=== PATIENT | male | born 1955 | race Caucasian/White ===

== ENCOUNTER 2018-09-23 16:24 | Inpatient (IN) | payer BC, OTHER ==
[~2018-09-23 16:24] MED LIST: ISOVUE-370 76%-LOCM 1 ML ONE
[2018-09-23 17:10] LABS: #Eosinphils 0.1 thou/uL (0.0-0.7); #Monocytes 1.6 thou/uL (0.11-0.59); %Basophils 0.2 % (0.0-1.0); %Eosinophils 0.7 % (0.0-10.0); %Lymphocytes 7.9 % (21.0-51.0); %Monocytes 12.5 % (0.0-10.0); %Neutrophils 78.6 % (42.0-75.0); Hemoglobin 13.6 g/dL (14.0-18.0); Mean Corpuscular Hemoglobin 26.9 pg (27.0-31.0); Mean Corpuscular Volume 83.8 fL (78.0-98.0); Mean Platelet Volume 7.6 fL (7.4-10.4); Platelet Count 263 thou/uL (130-400); RBC Distribution Width 13.4 % (11.5-14.5); Red Blood Cell (RBC) Count 5.07 mill/uL (4.70-6.10); White Blood Cell (WBC) Count 12.7 thou/uL (4.8-10.8)
[2018-09-23 17:29] LABS: Actual Bicarbonate (HCO3a) 25.4 mEq/L (22-28); Analyzer IN Cardio ER; Base Excess (BEa) 1.5 mEq/L (-2.0 to +3.0); CO2 Tension 37.8 mmHg (35.0-45.0); Calcium, Ionized 1.13 mmol/L (1.12-1.30); Carboxyhemoglobin (COHb) 0.5 gm% (0.0-3.0); Hemoglobin (Hb) 13.6 g/dL (14.0-18.0); O2 Tension (PaO2) 73.2 mmHg (> 80.0); Potassium - ABG Lab 3.55 mmol/L (3.70-5.30); pH, Arterial 7.45 (7.35-7.45)
[2018-09-23 17:30] LABS: Puncture Site RRA
[2018-09-23 17:39] LABS: ALT (SGPT) 47 U/L (8-55); AST (SGOT) 35 U/L (5-34); Albumin 3.2 g/dL (3.4-4.8); Alkaline Phosphatase 147 U/L (40-150); Anion Gap 17 mmol/L (10-20); BUN (Urea Nitrogen) 27 mg/dL (8.4-25.7); Bilirubin, Total 0.3 mg/dL (0.2-1.2); CK (CPK) 56 U/L (30-200); Calc. Creatinine Clearance 0 mL/min (70-130); Calcium 9.2 mg/dL (7.8-10.44); Carbon Dioxide 25 mmol/L (23-31); Chloride 97 mmol/L (98-107); Estimated GFR-MDRD 68; Globulin 3.4 g/dL (2.4-3.5); Glucose 194 mg/dL (80-115); Potassium 3.7 mmol/L (3.5-5.1); Protein, Total 6.6 g/dL (5.8-8.1); Sodium 135 mmol/L (136-145)
--- NOTE | 2018-09-23 17:59 | RAD ---
FRONTAL RADIOGRAPH CHEST PORTABLE UPRIGHT: 09/23/18 COMPARISON: None. HISTORY: Dyspnea, tachycardia, hypoxia. FINDINGS: There is pulmonary vascular prominence. There is interstitial opacity in the perihilar regions in bot h lung bases. There may be a reticulonodular configuration to these opacities. No large volume pleur al effusion. No pneumothorax or focal consolidation. Heart and mediastinal contours not well assesse d on portable imaging. Hilar prominence bilaterally could reflect vascular structures or adenopathy. IMPRESSION: Pulmonary vascular prominence with perihilar and bibasilar interstitial prominence. Findings suggests possibility of interstitial pulmonary edema. Reticulnodular density could also be related to infect ion or malignancy. Recommend followup imaging following treatment to document resolution. CT may be beneficial at this time. POS: [facility]
[2018-09-23 18:01] LABS: CKMB 0.6 ng/mL (0-6.6)
[2018-09-23] MEDS ORDERED: methylPREDNISolone Sod Succ/PF 125 MG/2 ML VIAL ONE (18:12)
[2018-09-23] MEDS ORDERED: Famotidine 20 MG TAB ONE (18:12)
[2018-09-23] MEDS ORDERED: diphenhydrAMINE 50 MG/ML VIAL ONE (18:13)
--- NOTE | 2018-09-23 18:53 | RAD ---
FRONTAL RADIOGRAPH PELVIS 09/23/18 COMPARISON: None. HISTORY: Lower abdominal pain in the groin, weakness. FINDINGS: There is no widening of the sacroiliac joints at the pubic symphysis. The pelvic ring is intact. No d isplaced fracture or evidence of dislocation. IMPRESSION: No acute findings. POS: [facility]
--- NOTE | 2018-09-23 18:58 | RAD ---
LUMBAR SPINE THREE VIEWS: 09/23/18 COMPARISON: None. HISTORY: Lower abdominal pain, weakness. FINDINGS: Five lumbar type vertebral bodies are present with intact pedicles on frontal imaging. Lateral imagin g demonstrates normal vertebral body height and alignment. There is facet hypertrophy at L4-5 and L5- S1. There is mild disc space narrowing and anterior osteophyte formation at L2-3 and L3-4. IMPRESSION: Degenerative change. No acute fracture or dislocation. POS: [facility]
[2018-09-23 19:23] LABS: Bilirubin Negative (Negative); Blood, Urine Large (Negative); Clarity CLOUDY (Clear); Glucose, Urine (Dipstick) Negative (Negative); Leukocyte Large (Negative); Nitrite Positive (Negative); Protein, Urine (Dipstick) 30 mg/dL (Neg-Trace); Specific Gravity, Urine 1.017 (1.002-1.036); Urobilinogen 0.2 mg/dL (0.2-1.0); pH, Urine 5.5 (5.0-9.0)
[2018-09-23 19:28] LABS: Bacteria/HPF 4+ HPF (None Seen); Hyaline Casts/LPF 7-10 HYALINE CAST LPF (0-3 Hyaline); Pathc Cast-AUWi Flag 0.72 (0-2.49); RBC/HPF GREATER THAN 50-TNTC HPF (0-3); Squamous Epithelial None Seen HPF (0-3)
[2018-09-23 22:32] LABS: CKMB 0.8 ng/mL (0-6.6)
--- NOTE | 2018-09-23 23:51 | CT ---
CT ANGIOGRAM OF THE CHEST 09/23/18 COMPARISON: None. HISTORY: Shortness of breath, history of stage IV prostate cancer. TECHNIQUE: Axial CT imaging at 2.5 mm intervals from the thoracic inlet through the upper abdomen with IV contra st. Coronal and sagittal 3D reformatted imaging obtained. FINDINGS: Respiratory motion artifact limits detailed assessment of the lung parenchyma. There is diffuse nonsp ecific increased linear interstitial density seen throughout both lungs. Some of these areas of diffu se nonspecific interstitial prominence demonstrate a somewhat reticulonodular configuration. No pleur al, pericardial, or mediastinal fluid is evident. Ill-defined ground glass nodule noted in the anterior aspect of the right middle lobe measuring 1.1 c m on axial image 59. There is no axillary lymphadenopathy. There is extensive bilateral hilar adenopathy and extensive mediastinal adenopathy. Numerous enlarged right paratracheal lymph nodes are noted, measuring up to 2.4 cm short axis dimension. Enlarged node s in the AP window measure up to 1.6 cm. Subcarinal adenopathy measures up to 2.4 cm. numerous bilate ral hilar lymph nodes present measuring up to 2.1 cm on the right and 1.8 cm on the left. Limited assessment of the upper abdomen demonstrates enlargement of an incompletely imaged left kidne y. There is lymphadenopathy seen in the upper abdomen, which includes enlarged lymph nodes in the lef t para-aortic region measuring up to 2.2 cm in short axis dimension and enlarged nodes in the region of the whitney hepatis, measuring up to approximately 1.4 cm short axis dimension. Incompletely assesse d retrocrural lymphadenopathy is suspected measuring 1.6 cm short axis dimension on the left and 1.1 cm short axis dimension on the right. No discrete filling defect is seen involving the pulmonary arterial vasculature to suggest the presen ce of acute pulmonary arterial embolism. Review of the osseous structures demonstrates a sclerotic lesion within the right 4th rib on image 3 8, the right 5th rib on image 55. The right 6th rib on image 63, the right 7th rib on image 67. The right 8th rib on image 76 and possibly the right 9th rib on image 102. There are sclerotic lesions a ssociated with left ribs as well including the 3rd rib posteriorly on image 16, 4th rib posteriorly o n image 24, 5th rib laterally on image 53 with a probably associated age indeterminate pathologic fra cture. The left 7th rib laterally on image 70 and the left 8th rib laterally on image 73. Questionable subtle sclerotic vertebral body lesions are noted at the T12, T8, and T7 levels. IMPRESSION: Extensive lymphadenopathy of the chest and abdomen as well as numerous sclerotic osseous lesions, franklyn dence of widespread metastatic disease. No evidence for pulmonary arterial embolism. Extensive abnorm al reticulonodular density throughout both lungs which may signify diffuse atypical infections proces s or lymphangitic spread of cancer. Results called to Dr. Payton at 8:10 p.m., 09/23/18. Code CR POS: [facility]
[2018-09-24 00:43] VITALS: BMI 29.8
[2018-09-24 02:21] LABS: CKMB 0.8 ng/mL (0-6.6)
[2018-09-24] MEDS ORDERED: Insulin Regular 300 UNITS/3 ML VIAL SC PRN ×2 (03:10)
[2018-09-24] MEDS ORDERED: Dextrose 50% Abboject 50 ML SYRINGE SLOW IVP PRN (03:10)
[2018-09-24] MEDS ORDERED: Dextrose 5% in Water 1,000 ML IV PRN (03:10)
[2018-09-24] MEDS ORDERED: traMADol HCl 50 MG TAB PO PRN (03:11)
[2018-09-24] MEDS ORDERED: Nitroglycerin 0.4 MG TAB (25 Tab Bottle) PO PRN (03:12)
[2018-09-24] MEDS ORDERED: Calcium Carbonate 500 MG ChewTAB PO PRN (03:12)
[2018-09-24] MEDS ORDERED: Acetaminophen 325 MG TAB PO PRN (03:12)
[2018-09-24] MEDS ORDERED: Senokot S 8.6-50 MG TAB PO PRN (03:12)
[2018-09-24] MEDS ORDERED: hydrALAZINE 20 MG/ML VIAL SLOW IVP PRN (03:20)
--- NOTE | 2018-09-24 03:57 | HP ---
CHIEF COMPLAINT: Shortness of breath. PRIMARY CARE PHYSICIAN: Dr. Maharaj. HISTORY OF PRESENT ILLNESS: The patient is a 63-year-old white male with metastatic prostate cancer, presented to the emergency room with shortness of breath. Over the last 3 weeks or so, the patient developed gradual worsening shortness of breath to the extent that he is short of breath at rest. He also gets dyspneic while talking. He denies significant orthopnea or paroxysmal nocturnal dyspnea. No significant leg swelling reported. He had minimal cough that was dry. He has also lost his appetite. He has nausea intermittently without any vomiting. He had lower abdominal pain yesterday that improved after a bowel movement. He denies recent immobilization, travel. He checked his oxygen at home, which was 85% on room air. He was able to obtain oxygen from his sister, which helped with his symptoms. In the emergency room, initial vital signs showed temperature 98.4, respiration of 20, with mild distress, pulse rate of 112, blood pressure of 116/71 with O2 saturation of 94% on 3 L nasal cannula. He received Levaquin and IV fluids in the emergency room. He also received antihistamine and steroid for iodine allergy. PAST MEDICAL HISTORY: 1. Metastatic prostate cancer, currently on homeopathic treatment. 2. Hypertension. 3. Diabetes mellitus type 2. 4. Hyperlipidemia. 5. Chronic urinary retention requiring straight catheterization. PAST SURGICAL HISTORY: 1. Right shoulder replacement. 2. Inguinal hernia repair. ALLERGIES: THE PATIENT IS ALLERGIC TO IODINE. CURRENT HOME MEDICATIONS: 1. Amlodipine 2.5 mg daily. 2. Glipizide ER 10 mg daily. 3. Benicar 40 mg daily. 4. Zofran as needed. 5. Tramadol as needed. SOCIAL HISTORY: The patient is a long-term smoker. Denies alcohol or drug use. FAMILY HISTORY: Positive for father with heart disease. Father underwent CABG as well as valve replacement. Younger brother requiring valve replacement. REVIEW OF SYSTEMS: All other review of systems was reviewed and was found negative. PHYSICAL EXAMINATION: VITAL SIGNS: As discussed above. GENERAL: A 63-year-old male, in minimal respiratory distress while resting. HEENT: Head, atraumatic and normocephalic. Sclerae anicteric. Moist mucous membranes. No oral lesions. NECK: Supple. No JVD appreciated. No carotid bruit. LUNGS: Symmetrical. There were minimal rhonchi without any wheezing. There were few inspiratory and expiratory rales, especially at bases. HEART: S1 and S2 present. Regular rate and rhythm. No murmurs, rubs, or gallops appreciated. ABDOMEN: Soft. Bowel sounds present. EXTREMITIES: No edema or calf tenderness. NEUROLOGIC: Grossly nonfocal. Moves all 4 extremities. PSYCHIATRY: Alert, awake, and oriented x3. SKIN: Warm and dry. LYMPH NODES: No palpable lymph nodes in the neck. LABORATORY FINDINGS: Chest x-ray by my review showed increased bronchopulmonary markings. CT angiogram of the chest was negative for pulmonary embolism. It showed extensive lymphadenopathy in the chest and abdomen with numerous sclerotic osseous lesion. Influenza testing was negative. EKG by my review showed sinus tachycardia. WBC 12.7 with hemoglobin of 13.6, platelet 263. Urinalysis showed greater than 50 wbc's, greater than 50 rbc's with 4+ bacteria. Troponin 0.157 with normal CK-MB. Lactic acid was normal. BNP 37. IMPRESSION: 1. Acute hypoxic respiratory failure secondary to atypical pneumonia. 2. Stage IV prostate cancer, currently on homeopathic regimen. The patient has declined chemotherapy and radiation in the past. He received Lupron approximately 2-1/2 years ago. 3. Elevated troponin, probably secondary to demand ischemia. 4. Chronic kidney disease stage 2. 5. Mild hyponatremia. 6. Catheter-associated urinary tract infection. 7. Nausea with poor oral intake. 8. Hypertension. 9. Diabetes mellitus type 2. 10. Hyperlipidemia. PLAN: The patient will be monitored on the telemetry unit. Echocardiogram will be obtained. Empiric antibiotics for atypical pneumonia and UTI will be started. Insulin sliding scale. We will consult Oncology and Pulmonary. We will assess for home O2. We will initiate nutrition supplement protocol due to poor oral intake. Nebulizer treatment every 4 hours. Plan was discussed with the patient in detail. He stated understanding. Job ID: [id number]
[2018-09-24] MEDS: Aspirin 81 mg Enteric Coated Tablet PO SCH (08:43)
[2018-09-24] MEDS: glipiZIDE 5 MG TAB PO SCH ×2 (08:43→16:13)
[2018-09-24] MEDS: Amlodipine 5 MG TAB PO SCH (08:43)
[2018-09-24] MEDS: Docusate 100 MG CAP PO SCH ×2 (08:43→20:29)
[2018-09-24] MEDS: Enoxaparin Sodium 40 MG/0.4 ML SYRINGE SC SCH (08:43)
--- NOTE | 2018-09-24 14:40 | PDOC.PN ---
- Subjective Encounter Start Date: 09/24/18 Encounter Start Time: 09:15 Subjective: pt up in bed feels better today, able to ambulate - Objective Resuscitation Status - Order Detail: 09/24/18 03:12 Resuscitation Status Routine Resuscitation Status: FULL: Full Resuscitation Vital Signs & Weight: Vital Signs (12 hours) Temp Pulse Resp BP Pulse Ox 09/24/18 12:00 97.3 F L 111 H 18 132/71 94 L 09/24/18 11:42 110 H 20 95 09/24/18 08:43 105 H 09/24/18 07:34 97.5 F L 105 H 18 135/77 92 L 09/24/18 07:08 99 16 98 09/24/18 04:16 97.6 F 94 17 131/75 94 L Weight Weight 226 lb 6.4 oz Result Diagrams: 09/23/18 16:49 09/23/18 16:49 Additional Labs: Accuchecks 09/24/18 09/24/18 12:08 05:44 POC Glucose 402 H 329 H Phys Exam - Physical Examination Neck: no nodes, no JVD, supple, full ROM Respiratory: no wheezing, no rales, no rhonchi, wheezing present, clear to auscultation bilateral Cardiovascular: RRR, no significant murmur, no rub, gallop, irregular Gastrointestinal: soft, non-tender, no distention, positive bowel sounds Dx/Plan (1) Acute respiratory failure with hypoxia Code(s): J96.01 - ACUTE RESPIRATORY FAILURE WITH HYPOXIA Status: Acute (2) Atypical pneumonia Code(s): J18.9 - PNEUMONIA, UNSPECIFIED ORGANISM Status: Acute (3) UTI (urinary tract infection) Status: Acute (4) Prostate cancer metastatic to lung Code(s): C61 - MALIGNANT NEOPLASM OF PROSTATE; C78.00 - SECONDARY MALIGNANT NEOPLASM OF UNSPECIFIED LUNG Status: Acute - Plan will continue levaquin for now -: pt feels a lot better today -: awating pulm and onc input -: pt has extensive disease to his lung and bone * . Review of Systems - Review of Systems Respiratory: negative: Cough, Dry, Hemoptysis, SOB with Excertion, Pleuritic Pain, Sputum, Wheezing Cardiovascular: negative: chest pain, palpitations, orthopnea, paroxysmal nocturnal dyspnea, edema, light headedness, other Gastrointestinal: negative: Nausea, Vomiting, Abdominal Pain, Diarrhea, Constipation, Melena, Hematochezia, Other Genitourinary: negative: Dysuria, Frequency, Incontinence, Hematuria, Retention , Other - Medications/Allergies Allergies/Adverse Reactions: Allergies Allergy/AdvReac Type Severity Reaction Status Date / Time iodine Allergy Mild SNEEZING Verified 09/24/18 01:11 acetaminophen [From Tylenol] Allergy Verified 09/24/18 06:32 Penicillins Allergy Verified 09/24/18 06:32 Medications: Current Medications Acetaminophen (Tylenol) 650 mg PO Q4H PRN PRN Reason: Headache/Fever/Mild Pain (1-3) Albuterol/Ipratropium (Duoneb) 3 ml NEB [id number] [facility] Last Admin: 09/24/18 11:42 Dose: 3 ml Albuterol/Ipratropium (Duoneb) 3 ml NEB [id number] PRN PRN Reason: SOB &/or Wheezing Amlodipine Besylate (Norvasc) 2.5 mg PO DAILY [facility] Last Admin: 09/24/18 08:43 Dose: 2.5 mg Aspirin (Ecotrin) 81 mg PO DAILY [facility] Last Admin: 09/24/18 08:43 Dose: 81 mg Calcium Carbonate (Tums) 1,000 mg PO Q4H PRN PRN Reason: Heartburn or Indigestion Dextrose/Water (Dextrose 50%) 25 gm SLOW IVP PRN PRN PRN Reason: Hypoglycemia Docusate Sodium (Colace) 100 mg PO BID [facility] Last Admin: 09/24/18 08:43 Dose: Not Given Enoxaparin Sodium (Lovenox) 40 mg SC 0900 [facility] Last Admin: 09/24/18 08:43 Dose: 40 mg Glipizide (Glucotrol) 5 mg PO BID-AC [facility] Last Admin: 09/24/18 08:43 Dose: 5 mg Glucagon (Glucagon) 1 mg IM PRN PRN PRN Reason: Hypoglycemia Hydralazine HCl (Apresoline) 10 mg SLOW IVP Q4H PRN PRN Reason: SBP Greater Than 180 Levofloxacin 750 mg/ Device 150 mls @ 100 mls/hr IVPB DAILY [facility] Last Admin: 09/24/18 08:42 Dose: 150 mls Dextrose/Water (D5w) 1,000 mls @ 0 mls/hr IV .Q0M PRN PRN Reason: Hypoglycemia Insulin Human Regular (Humulin R) 0 units SC .MODERATE SLIDING SC PRN PRN Reason: Moderate Correctional Scale Insulin Human Regular (Humulin R) 0 units SC .BEDTIME SLIDING SC PRN PRN Reason: Bedtime Correctional Scale Nitroglycerin (Nitrostat) 0.4 mg PO Q5MIN PRN PRN Reason: Chest Pain Olmesartan (Benicar) 40 mg PO DAILY [facility] Last Admin: 09/24/18 08:43 Dose: 40 mg Senna/Docusate Sodium (Senokot S) 2 tab PO BID PRN PRN Reason: Constipation Sodium Chloride (Flush - Normal Saline) 10 ml IVF PRN PRN PRN Reason: Saline Flush Last Admin: 09/24/18 08:44 Dose: 10 ml Tramadol HCl (Ultram) 50 mg PO DAILY PRN PRN Reason: Mild Pain (1-3)
--- NOTE | 2018-09-24 16:38 | CON ---
DATE OF CONSULTATION: 09/24/2018 CONSULTING PHYSICIAN: Ninaist . REASON FOR CONSULTATION: Pneumonia. HISTORY OF PRESENT ILLNESS: Mr. Landin is a pleasant 63-year-old male, who came to the emergency room yesterday. He lives in [place]. He is currently receiving treatment for metastatic prostate cancer. He has developed increasing shortness of breath over the last several months. He has had a low-grade fever over the last week, which he showed me on a vital sign book that he keeps at home. He has no previous history of lung disease. PAST MEDICAL HISTORY: 1. Metastatic prostate cancer, diagnosed, I believe back in 2010. He has had consultations both at [facility] and in [place], and was told there was not much that can be done. He has been receiving Lupron shots in the past, but I think he has been off that for some time. He is currently receiving treatment in [facility] for his cancer. 2. Hypertension. 3. Diabetes mellitus type 2. 4. Hyperlipidemia. 5. Chronic urinary retention. PAST SURGICAL HISTORY: He has had a right shoulder replacement and inguinal hernia repair. ALLERGIES: IODINE. MEDICATIONS: Prior to admission; 1. Amlodipine. 2. Glipizide. 3. Benicar. 4. Zofran. 5. Tramadol. SOCIAL HISTORY: Does not consume alcohol. Does not use drugs. Has been a smoker in the past. FAMILY MEDICAL HISTORY: Remarkable for coronary artery disease and valvular heart disease. REVIEW OF SYSTEMS: Otherwise negative. PHYSICAL EXAMINATION: VITAL SIGNS: Temperature 97.5, pulse 105, respirations 18, O2 saturation 92% on room air, blood pressure 135/77. GENERAL: The patient is awake and alert, and able to give history without limitation. In general, he has a long holden. HEENT: Remarkable for normal dentition. NECK: Without adenopathy. CHEST: He has some supraclavicular lymphadenopathy. LUNGS: Clear to auscultation. CARDIAC: S1 and S2 regular without audible murmur. ABDOMEN: Soft and nontender. EXTREMITIES: No clubbing, cyanosis, or edema. LABORATORY DATA: White blood cell count 12.7, hematocrit 42.5, and platelet count 263. PH 7.45, pCO2 of 37, pO2 of 73. Sodium 135, potassium 3.7, CO2 of 25, BUN 27, creatinine 1.1, glucose 194. Lactate 1.0. Troponin 0.157. BNP 37. I reviewed his chest x-ray and CT personally. His CT shows some alveolar type infiltration in the bases. He has diffuse skeletal metastasis. He has reticular nodular density within the lungs. He has numerous enlarged lymph nodes in the periaortic region. ASSESSMENT: This patient is presenting with diffuse pulmonary changes on CT, which could be consistent with metastatic prostate cancer. Pneumonia is also a possibility, but this would be more of an atypical type pneumonia such as mycoplasma or chlamydia or viral. The patient's pulmonary status does not look bad at this time. RECOMMENDATIONS: I think he could be treated safely with oral Levaquin for 7 to 10 days. If his lungs clear up, then that would sense the diagnosis of pneumonia. If they do not, then this is probably metastatic prostate cancer. Thank you for the referral. Job ID: [id number]
--- NOTE | 2018-09-24 21:19 | CON ---
DATE OF CONSULTATION: REASON FOR CONSULT: Metastatic prostate cancer. HISTORY OF PRESENT ILLNESS: Mr. Landin is a 63-year-old gentleman who was diagnosed with metastatic prostate cancer in 2010. He initially underwent treatment with Lupron from [facility]. His last shot was over 3 years ago when his PSA continued to climb despite injections. He went through homeopathic medicine in [facility] and currently is receiving treatment in [facility]. His PSA in July was 271. He states that his scan in July in [place] did show bone and lymph node involvement. He presented to the emergency room yesterday with increasing weakness and shortness of breath. He had a CT angio that showed no pulmonary embolism. However, there was extensive bilateral hilar adenopathy, mediastinal adenopathy, paratracheal lymph node adenopathy, subcarinal adenopathy. There were paraaortic lymph node involvement. The patient had numerous sclerotic bone lesions. He states his primary pain is in his pelvic area. He did have a pelvic x-ray, which showed no evidence of fracture, no acute findings. His calcium was normal at 9.2. There was a question of pneumonia. He was admitted for further treatment. PAST MEDICAL HISTORY: 1. Metastatic prostate cancer.. 2. Diabetes mellitus. 3. Hypertension. 4. Hyperlipidemia. 5. Chronic urinary retention. PAST SURGICAL HISTORY: 1. Hernia repair. 2. Shoulder surgery. ALLERGIES: IODINE. HOME MEDICATIONS: 1. Amlodipine 2.5 mg daily. 2. Glipizide ER daily. 3. Benicar daily. 4. Zofran p.r.n. 5. Tramadol p.r.n. pain. FAMILY HISTORY: Negative for prostate cancer. SOCIAL HISTORY: Smoker. No alcohol or illicit drug use. REVIEW OF SYSTEMS: A 10-point review of systems was negative except for noted in HPI. PHYSICAL EXAMINATION: VITAL SIGNS: Temperature is 97.6, pulse is 115, respiratory rate 18, BP is 134/ 68. He is 96% on 2 L. GENERAL: Well-developed, well-nourished male in no acute distress. HEENT: Normocephalic, atraumatic. Pupils equal and reactive to light. NECK: Supple. CV: Regular rate and rhythm. LUNGS: Diminished throughout. ABDOMEN: Soft, nontender. Bowel sounds are positive. There is no hepatic hepatosplenomegaly. EXTREMITIES: No clubbing, cyanosis, or edema. SKIN: No rash. HEMATOLOGICAL: No petechiae or purpura. NEUROLOGIC: Nonfocal. PSYCHIATRIC: The patient is alert, oriented and appropriate. PERTINENT LABS AND X-RAYS: Current WBC is 12.7, hemoglobin 13.6, hematocrit 42.5, platelet count 263,000, 78% neutrophils, 8% lymphocytes. Sodium is 135, potassium 3.7, chloride 97, CO2 is 25, BUN is 27, creatinine 1.1, calcium is 9.2, magnesium 1.9. Bilirubin is 0.3, AST is 35, ALT is 47, alkaline phosphatase is 147, creatine kinase is 56, troponin is 0.132. BNP is 37. Protein 6.6, albumin 3.2, globulin 3.4. Radiology per HPI. ASSESSMENT: 1. Metastatic prostate cancer. DISCUSSION: The patient states that he has already paid for homeopathic treatment in [place] and is returning there in October. We discussed at length new chemotherapy regimens that were recently approved for metastatic prostate cancer including Taxotere chemotherapy and oral Zytiga. His calcium is normal, so there is no need for Zometa at this time. No acute interventions are required on this hospitalization. He was strongly encouraged to follow up with a medical oncologist to discuss interventional chemotherapy options. Our clinic information was provided. Thank you for the consult. Job ID: [id number] [facility]
[2018-09-25] MEDS: traMADol HCl 50 MG TAB PO PRN ×2 (02:45→06:47)
[2018-09-25 06:03] LABS: Band 12 % (5-11); Hemoglobin 12.7 g/dL (14.0-18.0); Lymphocytes 10 % (21-51); MDiff Complete? YES; Mean Corpuscular Hemoglobin 26.4 pg (27.0-31.0); Mean Corpuscular Volume 82.4 fL (78.0-98.0); Mean Platelet Volume 7.5 fL (7.4-10.4); Metamyelocyte 1 % (0-0); Monocytes 8 % (0-10); Myelocyte 1 % (0-0); Neutrophil 68 % (42-75); Platelet Count 322 thou/uL (130-400); Platelet Morphology Comment Appears Adequate; RBC Distribution Width 13.5 % (11.5-14.5); White Blood Cell (WBC) Count 15.9 thou/uL (4.8-10.8)
[2018-09-25 06:07] LABS: Anion Gap 15 mmol/L (10-20); BUN (Urea Nitrogen) 39 mg/dL (8.4-25.7); Calc. Creatinine Clearance 91 mL/min (70-130); Calcium 8.9 mg/dL (7.8-10.44); Carbon Dioxide 24 mmol/L (23-31); Chloride 98 mmol/L (98-107); Estimated GFR-MDRD 61; Glucose 372 mg/dL (80-115); Potassium 3.6 mmol/L (3.5-5.1); Sodium 133 mmol/L (136-145)
[2018-09-25] MEDS: Aspirin 81 mg Enteric Coated Tablet PO SCH (08:05)
[2018-09-25] MEDS: Docusate 100 MG CAP PO SCH ×2 (08:05→21:18)
[2018-09-25] MEDS: Enoxaparin Sodium 40 MG/0.4 ML SYRINGE SC SCH (08:05)
[2018-09-25] MEDS: Amlodipine 5 MG TAB PO SCH (08:05)
[2018-09-25] MEDS: glipiZIDE 5 MG TAB PO SCH ×2 (08:05→16:42)
[2018-09-25] MEDS ORDERED: Acetaminophen/Codeine 30-300mg Tablet PO PRN (11:14)
--- NOTE | 2018-09-25 11:21 | PRG ---
DATE OF SERVICE: 09/25/2018 SUBJECTIVE: The patient is about the same. He had difficulty sleeping last night. OBJECTIVE: VITAL SIGNS: Temperature 97.6, pulse 98, respirations 18, O2 saturation 92% on room air, and blood pressure 133/85. HEENT: Unremarkable. NECK: No JVD. LUNGS: Fairly clear. CARDIAC: S1 and S2 regular. ABDOMEN: Distended. Decreased bowel sounds. EXTREMITIES: No edema. LABORATORY DATA: White blood cell count 15.9, hematocrit 39.6, platelet count 322. Sodium 133, potassium 3.6, chloride 98, CO2 of 24, BUN 39, creatinine 1.2, and glucose 372. An echocardiogram demonstrated EF of 60% to 65% with 1/3 diastolic dysfunction. ASSESSMENT: 1. Metastatic prostate cancer with probable pulmonary involvement. 2. Cannot fully rule out concurrent pneumonia, but based on what I have seen, I would think we are probably dealing with cancer. RECOMMENDATIONS: I would complete a course of antibiotics. It could conceivably be changed to oral Levaquin complete 10 days at home. If his x-ray improves when repeated in 3 weeks, then this probably proved that this was pneumonitis. If it does not, then we are looking at cancer. Job ID: [id number]
--- NOTE | 2018-09-25 16:14 | PDOC.PN ---
- Subjective Encounter Start Date: 09/25/18 Encounter Start Time: 09:00 Subjective: pt up in bed does not feel well today, complains of pain to his lower abd -: area - Objective Resuscitation Status - Order Detail: 09/24/18 03:12 Resuscitation Status Routine Resuscitation Status: FULL: Full Resuscitation Vital Signs & Weight: Vital Signs (12 hours) Temp Pulse Resp BP BP Pulse Ox 09/25/18 13:59 95 16 120/70 91 L 09/25/18 11:53 97.4 F L 102 H 18 130/80 92 L 09/25/18 08:05 98 09/25/18 08:00 97.6 F 98 18 133/85 92 L 09/25/18 07:23 96 Weight Admit Weight 226 lb 6.4 oz Weight 226 lb 6.4 oz I&O: 09/24/18 09/25/18 09/26/18 06:59 06:59 06:59 Intake Total 1440 Balance 1440 Result Diagrams: 09/25/18 05:18 09/25/18 05:18 Additional Labs: Accuchecks 09/25/18 09/25/18 09/24/18 10:38 06:19 20:07 POC Glucose 247 H 318 H 409 H 09/24/18 16:50 POC Glucose 390 H Phys Exam - Physical Examination Neck: no nodes, no JVD, supple, full ROM Respiratory: no wheezing, no rales, no rhonchi, wheezing present, clear to auscultation bilateral Cardiovascular: RRR, no significant murmur, no rub, gallop, irregular Gastrointestinal: soft, positive bowel sounds mild tenderness around his bilateral groin area Dx/Plan (1) Acute respiratory failure with hypoxia Code(s): J96.01 - ACUTE RESPIRATORY FAILURE WITH HYPOXIA Status: Acute (2) Atypical pneumonia Code(s): J18.9 - PNEUMONIA, UNSPECIFIED ORGANISM Status: Acute (3) UTI (urinary tract infection) Status: Acute (4) Prostate cancer metastatic to lung Code(s): C61 - MALIGNANT NEOPLASM OF PROSTATE; C78.00 - SECONDARY MALIGNANT NEOPLASM OF UNSPECIFIED LUNG Status: Acute - Plan pt has leukocytosis with bands today, will continue iv abx -: uti indicated klebsiella pna, pelvic xray no fx, if pt continues to have -: pain will get ct abd/pel. pt does not want to insulin, his sugars are high -: Nurse explained to pt the importance of bs control he refuses. -: pt got drowsy with tylenol #3 per nurse will only give tramadol. * . family requested pt to be back on iv fluids. will start pt on gentle hydrations. pt's ef is 60-65% Review of Systems - Review of Systems Respiratory: negative: Cough, Dry, Shortness of Breath, Hemoptysis, SOB with Excertion, Pleuritic Pain, Sputum, Wheezing Cardiovascular: negative: chest pain, palpitations, orthopnea, paroxysmal nocturnal dyspnea, edema, light headedness, other Gastrointestinal: negative: Nausea, Vomiting, Abdominal Pain, Diarrhea, Constipation, Melena, Hematochezia, Other Musculoskeletal: Other (groin pain) - Medications/Allergies Allergies/Adverse Reactions: Allergies Allergy/AdvReac Type Severity Reaction Status Date / Time iodine Allergy Mild SNEEZING Verified 09/24/18 01:11 acetaminophen [From Tylenol] Allergy Verified 09/24/18 06:32 Penicillins Allergy Verified 09/24/18 06:32 Medications: Current Medications Acetaminophen (Tylenol) 650 mg PO Q4H PRN PRN Reason: Headache/Fever/Mild Pain (1-3) Albuterol/Ipratropium (Duoneb) 3 ml NEB [id number] [facility] Last Admin: 09/25/18 14:50 Dose: Not Given Albuterol/Ipratropium (Duoneb) 3 ml NEB [id number] PRN PRN Reason: SOB &/or Wheezing Amlodipine Besylate (Norvasc) 2.5 mg PO DAILY [facility] Last Admin: 09/25/18 08:05 Dose: 2.5 mg Aspirin (Ecotrin) 81 mg PO DAILY [facility] Last Admin: 09/25/18 08:05 Dose: 81 mg Calcium Carbonate (Tums) 1,000 mg PO Q4H PRN PRN Reason: Heartburn or Indigestion Dextrose/Water (Dextrose 50%) 25 gm SLOW IVP PRN PRN PRN Reason: Hypoglycemia Docusate Sodium (Colace) 100 mg PO BID [facility] Last Admin: 09/25/18 08:05 Dose: 100 mg Enoxaparin Sodium (Lovenox) 40 mg SC 0900 [facility] Last Admin: 09/25/18 08:05 Dose: 40 mg Glipizide (Glucotrol) 5 mg PO BID[facility] Last Admin: 09/25/18 08:05 Dose: 5 mg Glucagon (Glucagon) 1 mg IM PRN PRN PRN Reason: Hypoglycemia Hydralazine HCl (Apresoline) 10 mg SLOW IVP Q4H PRN PRN Reason: SBP Greater Than 180 Levofloxacin 750 mg/ Device 150 mls @ 100 mls/hr IVPB DAILY [facility] Last Admin: 09/25/18 08:05 Dose: 150 mls Dextrose/Water (D5w) 1,000 mls @ 0 mls/hr IV .Q0M PRN PRN Reason: Hypoglycemia Sodium Chloride (Normal Saline 0.9%) 1,000 mls @ 75 mls/hr IV .[id number] [facility] Insulin Human Regular (Humulin R) 0 units SC .MODERATE SLIDING SC PRN PRN Reason: Moderate Correctional Scale Insulin Human Regular (Humulin R) 0 units SC .BEDTIME SLIDING SC PRN PRN Reason: Bedtime Correctional Scale Morphine Sulfate (Morphine) 2 mg SLOW IVP NOW [facility] Stop: 09/25/18 18:15 Nitroglycerin (Nitrostat) 0.4 mg PO Q5MIN PRN PRN Reason: Chest Pain Olmesartan (Benicar) 40 mg PO DAILY [facility] Last Admin: 09/25/18 08:05 Dose: 40 mg Senna/Docusate Sodium (Senokot S) 2 tab PO BID PRN PRN Reason: Constipation Sodium Chloride (Flush - Normal Saline) 10 ml IVF PRN PRN PRN Reason: Saline Flush Last Admin: 09/25/18 08:06 Dose: 10 ml Tramadol HCl (Ultram) 50 mg PO DAILY PRN PRN Reason: Mild Pain (1-3) Last Admin: 09/24/18 22:44 Dose: 50 mg Tramadol HCl (Ultram) 50 mg PO Q4H PRN PRN Reason: Moderate Pain (4-6) Last Admin: 09/25/18 06:47 Dose: 50 mg
[2018-09-25] MEDS ORDERED: Morphine 4 MG/ML VIAL SLOW IVP SCH (16:15)
[2018-09-25] MEDS: Sodium Chloride 0.9% 1,000 ML IV SCH (16:41)
[2018-09-25] MEDS: Morphine 4 MG/ML VIAL SLOW IVP PRN (22:41)
[2018-09-26] MEDS: Sodium Chloride 0.9% 1,000 ML IV SCH ×2 (03:41→16:24)
[2018-09-26] MEDS: Morphine 4 MG/ML VIAL SLOW IVP PRN ×4 (03:41→21:31)
[2018-09-26] MEDS: Enoxaparin Sodium 40 MG/0.4 ML SYRINGE SC SCH (09:02)
[2018-09-26] MEDS: Docusate 100 MG CAP PO SCH ×2 (09:03→21:30)
[2018-09-26] MEDS: Amlodipine 5 MG TAB PO SCH (09:03)
[2018-09-26] MEDS: Aspirin 81 mg Enteric Coated Tablet PO SCH (09:03)
[2018-09-26] MEDS: glipiZIDE 5 MG TAB PO SCH ×2 (09:03→16:24)
--- NOTE | 2018-09-26 12:15 | PDOC.PN ---
- Subjective Encounter Start Date: 09/26/18 Encounter Start Time: 11:00 Subjective: back pain and sob are better -: has not amb yet - Objective Resuscitation Status - Order Detail: 09/24/18 03:12 Resuscitation Status Routine Resuscitation Status: FULL: Full Resuscitation MAR Reviewed: Yes Vital Signs & Weight: Vital Signs (12 hours) Temp Pulse Resp BP BP Pulse Ox 09/26/18 11:50 98 F 110 H 18 136/79 92 L 09/26/18 09:03 107 H 09/26/18 09:00 94 L 09/26/18 08:58 98.1 F 107 H 16 119/61 94 L 09/26/18 03:43 98.0 F 111 H 18 124/82 92 L Weight Admit Weight 226 lb 6.4 oz Weight 226 lb 6.4 oz I&O: 09/25/18 09/26/18 09/27/18 06:59 06:59 06:59 Intake Total 1440 Balance 1440 Result Diagrams: 09/25/18 05:18 09/25/18 05:18 Additional Labs: Accuchecks 09/26/18 09/26/18 09/25/18 10:24 05:48 20:53 POC Glucose 198 H 186 H 134 H 09/25/18 16:41 POC Glucose 222 H Phys Exam - Physical Examination HEENT: PERRLA, sclera anicteric Neck: no JVD, supple Respiratory: no wheezing, no rales Cardiovascular: RRR, no significant murmur Gastrointestinal: soft, non-tender, positive bowel sounds Musculoskeletal: pulses present, edema present Neurological: non-focal, moves all 4 limbs Psychiatric: normal affect, A&O x 3 Dx/Plan (1) Acute respiratory failure with hypoxia Code(s): J96.01 - ACUTE RESPIRATORY FAILURE WITH HYPOXIA Status: Acute (2) Atypical pneumonia Code(s): J18.9 - PNEUMONIA, UNSPECIFIED ORGANISM Status: Acute (3) Prostate cancer Code(s): C61 - MALIGNANT NEOPLASM OF PROSTATE Status: Chronic Comment: with multiple mets, diagnosed from 2010 with mets, has been getting homeopathic treatment from [facility], has next f/u appt in oct (4) UTI (urinary tract infection) Status: Acute Qualifiers: Urinary tract infection type: acute cystitis Hematuria presence: without hematuria Qualified Code(s): N30.00 - Acute cystitis without hematuria (5) Physical deconditioning Code(s): R53.81 - OTHER MALAISE Status: Acute (6) DM type 2 (diabetes mellitus, type 2) Status: Acute Qualifiers: Diabetes mellitus roasterman insulin use: without longterm use Diabetes mellitus complication status: with unspecified complications Qualified Code(s) : E11.8 - Type 2 diabetes mellitus with unspecified complications (7) JULY (acute kidney injury) Code(s): N17.9 - ACUTE KIDNEY FAILURE, UNSPECIFIED Status: Acute (8) Demand ischemia of myocardium Code(s): I24.8 - OTHER FORMS OF ACUTE ISCHEMIC HEART DISEASE Status: Acute - Plan to amb with PT in hallway as tolerated -: wean and dc oxygen for spo2 of 90% -: poor prognosis, psa is 1002. He was told he will live for 18months in 2010 -: on levaquin, iv fluids, asp, norvasc, olmesartan, glipizide * . Review of Systems - Medications/Allergies Allergies/Adverse Reactions: Allergies Allergy/AdvReac Type Severity Reaction Status Date / Time iodine Allergy Mild SNEEZING Verified 09/24/18 01:11 acetaminophen [From Tylenol] Allergy Verified 09/24/18 06:32 Penicillins Allergy Verified 09/24/18 06:32 Medications: Current Medications Acetaminophen (Tylenol) 650 mg PO Q4H PRN PRN Reason: Headache/Fever/Mild Pain (1-3) Albuterol/Ipratropium (Duoneb) 3 ml NEB [id number] [facility] Last Admin: 09/26/18 08:22 Dose: Not Given Albuterol/Ipratropium (Duoneb) 3 ml NEB [id number] PRN PRN Reason: SOB &/or Wheezing Amlodipine Besylate (Norvasc) 2.5 mg PO DAILY [facility] Last Admin: 09/26/18 09:03 Dose: 2.5 mg Aspirin (Ecotrin) 81 mg PO DAILY [facility] Last Admin: 09/26/18 09:03 Dose: 81 mg Calcium Carbonate (Tums) 1,000 mg PO Q4H PRN PRN Reason: Heartburn or Indigestion Dextrose/Water (Dextrose 50%) 25 gm SLOW IVP PRN PRN PRN Reason: Hypoglycemia Docusate Sodium (Colace) 100 mg PO BID [facility] Last Admin: 09/26/18 09:03 Dose: 100 mg Enoxaparin Sodium (Lovenox) 40 mg SC 0900 [facility] Last Admin: 09/26/18 09:02 Dose: 40 mg Glipizide (Glucotrol) 5 mg PO BID-AC [facility] Last Admin: 09/26/18 09:03 Dose: 5 mg Glucagon (Glucagon) 1 mg IM PRN PRN PRN Reason: Hypoglycemia Hydralazine HCl (Apresoline) 10 mg SLOW IVP Q4H PRN PRN Reason: SBP Greater Than 180 Levofloxacin 750 mg/ Device 150 mls @ 100 mls/hr IVPB DAILY [facility] Last Admin: 09/26/18 09:02 Dose: 150 mls Dextrose/Water (D5w) 1,000 mls @ 0 mls/hr IV .Q0M PRN PRN Reason: Hypoglycemia Sodium Chloride (Normal Saline 0.9%) 1,000 mls @ 75 mls/hr IV .[id number] [facility] Last Admin: 09/26/18 03:41 Dose: 1,000 mls Insulin Human Regular (Humulin R) 0 units SC .MODERATE SLIDING SC PRN PRN Reason: Moderate Correctional Scale Insulin Human Regular (Humulin R) 0 units SC .BEDTIME SLIDING SC PRN PRN Reason: Bedtime Correctional Scale Morphine Sulfate (Morphine) 2 mg SLOW IVP Q4H PRN PRN Reason: Pain Last Admin: 09/26/18 10:13 Dose: 2 mg Nitroglycerin (Nitrostat) 0.4 mg PO Q5MIN PRN PRN Reason: Chest Pain Olmesartan (Benicar) 40 mg PO DAILY [facility] Last Admin: 09/26/18 09:02 Dose: 40 mg Senna/Docusate Sodium (Senokot S) 2 tab PO BID PRN PRN Reason: Constipation Sodium Chloride (Flush - Normal Saline) 10 ml IVF PRN PRN PRN Reason: Saline Flush Last Admin: 09/25/18 08:06 Dose: 10 ml Tramadol HCl (Ultram) 50 mg PO DAILY PRN PRN Reason: Mild Pain (1-3) Last Admin: 09/24/18 22:44 Dose: 50 mg Tramadol HCl (Ultram) 50 mg PO Q4H PRN PRN Reason: Moderate Pain (4-6) Last Admin: 09/25/18 06:47 Dose: 50 mg
--- NOTE | 2018-09-26 13:34 | PRG ---
DATE OF SERVICE: 09/26/2018 SUBJECTIVE: The patient is doing reasonably well. He had no complaints. OBJECTIVE: VITAL SIGNS: Temperature 98.0, pulse 110, respirations 18, O2 saturation 92% on room air, blood pressure 136/79. HEENT: Unremarkable. NECK: No adenopathy. No JVD. LUNGS: Few inspiratory crackles at the bases. CARDIAC: S1 and S2, regular. ABDOMEN: Soft. EXTREMITIES: No edema. ASSESSMENT: 1. Metastatic prostate cancer with probable pulmonary involvement. 2. Possible concurrent pneumonia. PLAN: He is probably stable to go home on antibiotics. He will need a followup x-ray in about 3 weeks to document resolution. I am not sure what can be done from an oncologic standpoint. Please recall if further assistance needed. Job ID: [id number]
[2018-09-27] MEDS: Morphine 4 MG/ML VIAL SLOW IVP PRN ×3 (03:53→20:52)
[2018-09-27] MEDS: glipiZIDE 5 MG TAB PO SCH ×2 (08:12→16:24)
[2018-09-27] MEDS: Amlodipine 5 MG TAB PO SCH (08:12)
[2018-09-27] MEDS: Sodium Chloride 0.9% 1,000 ML IV SCH (08:12)
[2018-09-27] MEDS: Aspirin 81 mg Enteric Coated Tablet PO SCH (08:14)
[2018-09-27] MEDS: Docusate 100 MG CAP PO SCH ×2 (08:14→20:52)
[2018-09-27] MEDS: Enoxaparin Sodium 40 MG/0.4 ML SYRINGE SC SCH (08:14)
--- NOTE | 2018-09-27 11:01 | PDOC.PN ---
- Subjective Encounter Start Date: 09/27/18 Encounter Start Time: 09:20 Subjective: breathing better -: is amb in room -: is worried his heart rate is high, no subjective palp - Objective Resuscitation Status - Order Detail: 09/24/18 03:12 Resuscitation Status Routine Resuscitation Status: FULL: Full Resuscitation MAR Reviewed: Yes Vital Signs & Weight: Vital Signs (12 hours) Temp Pulse Resp BP Pulse Ox 09/27/18 08:05 98 F 111 H 20 129/77 94 L 09/27/18 06:41 91 L 09/27/18 03:52 97.9 F 111 H 16 122/72 91 L Weight Admit Weight 226 lb 6.4 oz Weight 226 lb 6.4 oz Result Diagrams: 09/25/18 05:18 09/25/18 05:18 Additional Labs: Accuchecks 09/27/18 09/27/18 09/26/18 10:39 05:48 20:11 POC Glucose 240 H 207 H 204 H 09/26/18 16:35 POC Glucose 169 H Phys Exam - Physical Examination HEENT: PERRLA, moist MMs Neck: no JVD, supple Respiratory: no wheezing, no rales Cardiovascular: RRR, no significant murmur tachycardic Gastrointestinal: soft, no distention, positive bowel sounds Musculoskeletal: pulses present, edema present Neurological: non-focal, moves all 4 limbs Psychiatric: normal affect, A&O x 3 Dx/Plan (1) Acute respiratory failure with hypoxia Code(s): J96.01 - ACUTE RESPIRATORY FAILURE WITH HYPOXIA Status: Resolved Comment: on room air today (2) Atypical pneumonia Code(s): J18.9 - PNEUMONIA, UNSPECIFIED ORGANISM Status: Acute (3) Prostate cancer Code(s): C61 - MALIGNANT NEOPLASM OF PROSTATE Status: Chronic Comment: with multiple mets, diagnosed from 2010 with mets, has been getting homeopathic treatment from [place], has next f/u appt in oct (4) UTI (urinary tract infection) Status: Acute Qualifiers: Urinary tract infection type: acute cystitis Hematuria presence: without hematuria Qualified Code(s): N30.00 - Acute cystitis without hematuria (5) Physical deconditioning Code(s): R53.81 - OTHER MALAISE Status: Acute (6) DM type 2 (diabetes mellitus, type 2) Status: Acute Qualifiers: Diabetes mellitus fdc insulin use: without equipment operator intermodal yard use Diabetes mellitus complication status: with unspecified complications Qualified Code(s) : E11.8 - Type 2 diabetes mellitus with unspecified complications (7) JULY (acute kidney injury) Code(s): N17.9 - ACUTE KIDNEY FAILURE, UNSPECIFIED Status: Resolved (8) Demand ischemia of myocardium Code(s): I24.8 - OTHER FORMS OF ACUTE ISCHEMIC HEART DISEASE Status: Acute - Plan change antibiotics to oral omnicef -: usg venous doppler to r/o dvt, admitting cta -ve for PE -: change nebs to prn -: add lopressor bid -: if stable may dc home this evening * . Review of Systems - Medications/Allergies Allergies/Adverse Reactions: Allergies Allergy/AdvReac Type Severity Reaction Status Date / Time iodine Allergy Mild SNEEZING Verified 09/24/18 01:11 acetaminophen [From Tylenol] Allergy Verified 09/24/18 06:32 Penicillins Allergy Verified 09/24/18 06:32 Medications: Current Medications Acetaminophen (Tylenol) 650 mg PO Q4H PRN PRN Reason: Headache/Fever/Mild Pain (1-3) Albuterol/Ipratropium (Duoneb) 3 ml NEB [id number] PRN PRN Reason: sob Amlodipine Besylate (Norvasc) 2.5 mg PO DAILY [facility] Last Admin: 09/27/18 08:12 Dose: 2.5 mg Aspirin (Ecotrin) 81 mg PO DAILY [facility] Last Admin: 09/27/18 08:14 Dose: 81 mg Calcium Carbonate (Tums) 1,000 mg PO Q4H PRN PRN Reason: Heartburn or Indigestion Dextrose/Water (Dextrose 50%) 25 gm SLOW IVP PRN PRN PRN Reason: Hypoglycemia Docusate Sodium (Colace) 100 mg PO BID [facility] Last Admin: 09/27/18 08:14 Dose: 100 mg Enoxaparin Sodium (Lovenox) 40 mg SC 0900 [facility] Last Admin: 09/27/18 08:14 Dose: 40 mg Glipizide (Glucotrol) 5 mg PO BID-AC [facility] Last Admin: 09/27/18 08:12 Dose: 5 mg Glucagon (Glucagon) 1 mg IM PRN PRN PRN Reason: Hypoglycemia Hydralazine HCl (Apresoline) 10 mg SLOW IVP Q4H PRN PRN Reason: SBP Greater Than 180 Dextrose/Water (D5w) 1,000 mls @ 0 mls/hr IV .Q0M PRN PRN Reason: Hypoglycemia Insulin Human Regular (Humulin R) 0 units SC .MODERATE SLIDING SC PRN PRN Reason: Moderate Correctional Scale Insulin Human Regular (Humulin R) 0 units SC .BEDTIME SLIDING SC PRN PRN Reason: Bedtime Correctional Scale Metoprolol Tartrate (Lopressor) 25 mg PO BID [facility] Metoprolol Tartrate (Lopressor) 25 mg PO ONE [facility] Morphine Sulfate (Morphine) 2 mg SLOW IVP Q4H PRN PRN Reason: Pain Last Admin: 09/27/18 03:53 Dose: 2 mg Nitroglycerin (Nitrostat) 0.4 mg PO Q5MIN PRN PRN Reason: Chest Pain Olmesartan (Benicar) 40 mg PO DAILY [facility] Last Admin: 09/27/18 08:14 Dose: 40 mg Senna/Docusate Sodium (Senokot S) 2 tab PO BID PRN PRN Reason: Constipation Sodium Chloride (Flush - Normal Saline) 10 ml IVF PRN PRN PRN Reason: Saline Flush Last Admin: 09/25/18 08:06 Dose: 10 ml Tramadol HCl (Ultram) 50 mg PO DAILY PRN PRN Reason: Mild Pain (1-3) Last Admin: 09/24/18 22:44 Dose: 50 mg Tramadol HCl (Ultram) 50 mg PO Q4H PRN PRN Reason: Moderate Pain (4-6) Last Admin: 09/25/18 06:47 Dose: 50 mg
[2018-09-27] MEDS ORDERED: Metoprolol Tartrate 25 MG TAB PO SCH (11:45)
--- NOTE | 2018-09-27 14:45 | ULT ---
ULTRASOUND WITH DOPPLER DUPLEX VENOUS LOWER EXTREMITIES BILATERAL: HISTORY: A 63-year-old male with right lower extremity pain. TECHNIQUE: Color flow Doppler, spectral waveform analysis of pulsed Doppler, and mckenzie-scale imaging with pranav felicia and augmentation, were used to evaluate the bilateral common femoral, femoral, popliteal, forming machine operator ior tibial, and superficial femoral, veins; and the proximal portions of the profunda femoral and gre ater saphenous, veins. FINDINGS: There is normal compressibility, demonstration of blood flow by color Doppler and pulsed Doppler, and response to augmentation, in all interrogated veins. IMPRESSION: Negative. No deep vein thrombosis in the bilateral lower extremities. jn[] POS: [place]
[2018-09-27] MEDS: Metoprolol Tartrate 25 MG TAB PO SCH (20:52)
[2018-09-27] MEDS: Cefdinir 300 MG CAP PO SCH (20:52)
[2018-09-28] MEDS: Morphine 4 MG/ML VIAL SLOW IVP PRN (01:28)
[2018-09-28] MEDS ORDERED: Sodium Chloride 0.9% 250 ML IV SCH (07:45)
[2018-09-28] MEDS: glipiZIDE 5 MG TAB PO SCH ×2 (08:18→16:13)
[2018-09-28] MEDS: Amlodipine 5 MG TAB PO SCH (08:19)
[2018-09-28] MEDS: Cefdinir 300 MG CAP PO SCH (08:20)
[2018-09-28] MEDS: Enoxaparin Sodium 40 MG/0.4 ML SYRINGE SC SCH (08:20)
[2018-09-28] MEDS: Aspirin 81 mg Enteric Coated Tablet PO SCH (08:20)
[2018-09-28] MEDS: Docusate 100 MG CAP PO SCH (08:20)
[2018-09-28] MEDS: Metoprolol Tartrate 25 MG TAB PO SCH (08:21)
[2018-09-28 08:51] LABS: Free T4 (Free Thyroxine) 0.98 ng/dL (0.70-1.48); Thyroid Stimulating Hormone 0.8552 uIU/mL (0.35-4.94)
--- NOTE | 2018-09-28 10:34 | PDOC.PN ---
- Subjective Encounter Start Date: 09/28/18 Encounter Start Time: 08:45 Subjective: no c/o palp or sob -: is amb in room and hallway - Objective Resuscitation Status - Order Detail: 09/24/18 03:12 Resuscitation Status Routine Resuscitation Status: FULL: Full Resuscitation MAR Reviewed: Yes Vital Signs & Weight: Vital Signs (12 hours) Temp Pulse Resp BP Pulse Ox 09/28/18 08:19 115 H 09/28/18 08:12 98.3 F 115 H 115 H 124/60 92 L 09/28/18 03:34 98.4 F 108 H 18 137/69 93 L Weight Admit Weight 226 lb 6.4 oz Weight 235 lb 4.8 oz I&O: 09/27/18 09/28/18 09/29/18 06:59 06:59 06:59 Intake Total 3050 Balance 3050 Result Diagrams: 09/25/18 05:18 09/25/18 05:18 Additional Labs: Accuchecks 09/28/18 09/27/18 09/27/18 05:46 20:33 16:48 POC Glucose 167 H 192 H 167 H 09/27/18 10:39 POC Glucose 240 H Phys Exam - Physical Examination HEENT: PERRLA, moist MMs Neck: no nodes, no JVD Respiratory: no wheezing, no rales Cardiovascular: RRR, no significant murmur Gastrointestinal: soft, non-tender, positive bowel sounds Musculoskeletal: no edema, pulses present Neurological: non-focal, moves all 4 limbs Psychiatric: normal affect, A&O x 3 Dx/Plan (1) Acute respiratory failure with hypoxia Code(s): J96.01 - ACUTE RESPIRATORY FAILURE WITH HYPOXIA Status: Resolved Comment: on room air today (2) Atypical pneumonia Code(s): J18.9 - PNEUMONIA, UNSPECIFIED ORGANISM Status: Acute (3) Prostate cancer Code(s): C61 - MALIGNANT NEOPLASM OF PROSTATE Status: Chronic Comment: with multiple mets, diagnosed from 2010 with mets, has been getting homeopathic treatment from [place], has next f/u appt in oct (4) UTI (urinary tract infection) Status: Acute Qualifiers: Urinary tract infection type: acute cystitis Hematuria presence: without hematuria Qualified Code(s): N30.00 - Acute cystitis without hematuria (5) Physical deconditioning Code(s): R53.81 - OTHER MALAISE Status: Acute (6) DM type 2 (diabetes mellitus, type 2) Status: Acute Qualifiers: Diabetes mellitus call center recruiter insulin use: without call center recruiter use Diabetes mellitus complication status: with unspecified complications Qualified Code(s) : E11.8 - Type 2 diabetes mellitus with unspecified complications (7) JULY (acute kidney injury) Code(s): N17.9 - ACUTE KIDNEY FAILURE, UNSPECIFIED Status: Resolved (8) Demand ischemia of myocardium Code(s): I24.8 - OTHER FORMS OF ACUTE ISCHEMIC HEART DISEASE Status: Acute - Plan has persistent sinus tach, no fever, sick euthyroid labs, no dvt -: cxr for completion sake, admitting cta chest showed no PE -: got 250mls ns bolus this am, is on lopressor -: likely dc plan this evening * . Review of Systems - Medications/Allergies Allergies/Adverse Reactions: Allergies Allergy/AdvReac Type Severity Reaction Status Date / Time iodine Allergy Mild SNEEZING Verified 09/24/18 01:11 acetaminophen [From Tylenol] Allergy Verified 09/24/18 06:32 Penicillins Allergy Verified 09/24/18 06:32 Medications: Current Medications Acetaminophen (Tylenol) 650 mg PO Q4H PRN PRN Reason: Headache/Fever/Mild Pain (1-3) Albuterol/Ipratropium (Duoneb) 3 ml NEB Q4H PRN PRN Reason: sob Amlodipine Besylate (Norvasc) 2.5 mg PO DAILY [facility] Last Admin: 09/28/18 08:19 Dose: 2.5 mg Aspirin (Ecotrin) 81 mg PO DAILY [facility] Last Admin: 09/28/18 08:20 Dose: 81 mg Calcium Carbonate (Tums) 1,000 mg PO Q4H PRN PRN Reason: Heartburn or Indigestion Cefdinir (Omnicef) 300 mg PO BID [facility] Last Admin: 09/28/18 08:20 Dose: 300 mg Dextrose/Water (Dextrose 50%) 25 gm SLOW IVP PRN PRN PRN Reason: Hypoglycemia Docusate Sodium (Colace) 100 mg PO BID [facility] Last Admin: 09/28/18 08:20 Dose: 100 mg Enoxaparin Sodium (Lovenox) 40 mg SC 0900 [facility] Last Admin: 09/28/18 08:20 Dose: 40 mg Glipizide (Glucotrol) 5 mg PO BID[facility] Last Admin: 09/28/18 08:18 Dose: 5 mg Glucagon (Glucagon) 1 mg IM PRN PRN PRN Reason: Hypoglycemia Hydralazine HCl (Apresoline) 10 mg SLOW IVP Q4H PRN PRN Reason: SBP Greater Than 180 Dextrose/Water (D5w) 1,000 mls @ 0 mls/hr IV .Q0M PRN PRN Reason: Hypoglycemia Insulin Human Regular (Humulin R) 0 units SC .MODERATE SLIDING SC PRN PRN Reason: Moderate Correctional Scale Insulin Human Regular (Humulin R) 0 units SC .BEDTIME SLIDING SC PRN PRN Reason: Bedtime Correctional Scale Metoprolol Tartrate (Lopressor) 25 mg PO BID [facility] Last Admin: 09/28/18 08:21 Dose: 25 mg Morphine Sulfate (Morphine) 2 mg SLOW IVP Q4H PRN PRN Reason: Pain Last Admin: 09/28/18 01:28 Dose: 2 mg Nitroglycerin (Nitrostat) 0.4 mg PO Q5MIN PRN PRN Reason: Chest Pain Olmesartan (Benicar) 40 mg PO DAILY [facility] Last Admin: 09/28/18 08:21 Dose: 40 mg Senna/Docusate Sodium (Senokot S) 2 tab PO BID PRN PRN Reason: Constipation Last Admin: 09/27/18 14:20 Dose: 2 tab Sodium Chloride (Flush - Normal Saline) 10 ml IVF PRN PRN PRN Reason: Saline Flush Last Admin: 09/25/18 08:06 Dose: 10 ml Tramadol HCl (Ultram) 50 mg PO DAILY PRN PRN Reason: Mild Pain (1-3) Last Admin: 09/24/18 22:44 Dose: 50 mg Tramadol HCl (Ultram) 50 mg PO Q4H PRN PRN Reason: Moderate Pain (4-6) Last Admin: 09/25/18 06:47 Dose: 50 mg
--- NOTE | 2018-09-28 12:36 | RAD ---
PORTABLE CHEST: Comparison: 09-23-18 chest x-ray and CT study. History: Patient has history of Stage IV prostate cancer, and dyspnea. FINDINGS: Heart size is within normal limits. Right paratracheal fullness and bilateral hilar prominence is com patible with adenopathy which was demonstrated on the CT examination. Some minimal patchy parenchymal lung changes seen in both lung garcia appear stable as compared to the prior exam. The sclerotic bon e lesions are difficult to appreciate on this portable exam. IMPRESSION: Essentially stable study. I do not appreciate any appreciable difference in the patchy parenchymal keith ng changes. Bilateral hilar and mediastinal adenopathy is again noted. POS: [facility]
[2018-09-28 16:13] VITALS: BP 117/69; TEMP 97.9
--- NOTE | 2018-09-29 13:31 | DIS ---
DATE OF ADMISSION: 09/24/2018 DATE OF DISCHARGE: 09/28/2018 DISCHARGE DISPOSITION: Home. PRIMARY DISCHARGE DIAGNOSES: 1. Atypical pneumonia. 2. History of prostate cancer with multiple METS. 3. Acute respiratory failure with hypoxia, resolved. 4. Urinary tract infection. 5. Deconditioning. 6. Diabetes mellitus type 2. 7. Acute kidney injury on admission, resolved. 8. Demand ischemia, resolved. PROCEDURES DONE DURING HOSPITALIZATION: The patient has had lumbar spine 3-view x-ray done showed no fracture or dislocation. There was degenerative changes seen. CT angio of chest done showed extensive lymphadenopathy of the chest and abdomen as well as numerous sclerotic osseous lesions. Evidence for widespread metastatic disease. No evidence of pulmonary arterial embolism was seen. Extensive abnormal reticulonodular densities throughout both lungs, which could signify diffuse atypical infectious process or lymphangitic spread of cancer. Echo with 2D Doppler showed EF of 60% to 65%. There was diastolic dysfunction. Ultrasound venous Doppler of lower extremities done showed no evidence of DVT. Urine culture grew Klebsiella pneumoniae sensitive to all antibiotics except Macrobid. Blood cultures x2, no growth. Influenza A and B antigens were negative. Free T4 of 0.9, free T3 of 1.1, TSH 0.85. BUN and creatinine on were 39 and 1.2. Troponin I was indeterminate, peaking up to 0.19. CK-MB 0.6. Albumin was 3.2, alkaline phosphatase 147, serum calcium was 9.2, albumin was 3.2. DISCHARGE MEDICATIONS: 1. Norvasc 2.5 mg p.o. daily. 2. Glipizide 10 mg p.o. daily extended release. 3. Benicar 40 mg p.o. daily. 4. Ultram p.r.n. for pain. 5. Albuterol inhaler q.6 hours p.r.n. 6. Omnicef 300 mg p.o. twice daily for another 3 days. 7. Lopressor 25 mg twice daily. ALLERGIES: IODINE, PENICILLIN, AND TYLENOL. INPATIENT CONSULT: Dr. Liu. DISCHARGE PLAN: The patient to follow up with his oncologist in 2 weeks. He also needs to follow up with primary care physician in one week. BRIEF COURSE DURING HOSPITALIZATION: The patient initially got admitted on the with complaints of shortness of breath. Initial CT angio of chest done showed multiple METS with history of long-standing prostate cancer. He was placed on 3 L nasal cannula and also had suspicion of atypical pneumonia. He has had consultation with Dr. Liu. The patient was on broad-spectrum IV antibiotics. The patient's PSA level came back at 1002.72 ng/mL. He has had CT angio of chest and ultrasound venous Doppler of lower extremities done, both of which did not reveal any DVT or PE. The patient had persistent tachycardia. He was fluid resuscitated. The patient was also placed on Lopressor. His overall prognosis is guarded due to metastatic prostate cancer. The patient gets his treatment in [place] and has a followup appointment in October. He wants to continue his homeopathic treatment for the same. He was offered outpatient appointment with local oncologist, but the patient has refused the same. He needs to follow up with his primary care physician in one week. Please see face to face documentation for the day of discharge on Imaging3. Job ID: [id number] [id number]
== END 2018-09-28 16:30 | disposition home or self-care (01) | DRG 193 ==
LOC: ERS 16:24 → 2NO 09-24 00:37
PROVIDERS: ADMIT Emergency Medicine; ATTEND Emergency Medicine
DX: J18.9 Pneumonia, unspecified organism (principal); J96.01 Acute respiratory failure with hypoxia; T83.511A Infection and inflammatory reaction due to indwelling urethral catheter, initial encounter; N39.0 Urinary tract infection, site not specified; I24.8 Other forms of acute ischemic heart disease; E87.1 Hypo-osmolality and hyponatremia; C78.00 Secondary malignant neoplasm of unspecified lung; C61 Malignant neoplasm of prostate; E78.5 Hyperlipidemia, unspecified; R33.9 Retention of urine, unspecified; Z96.611 Presence of right artificial shoulder joint; F17.210 Nicotine dependence, cigarettes, uncomplicated; E11.22 Type 2 diabetes mellitus with diabetic chronic kidney disease; I12.9 Hypertensive chronic kidney disease with stage 1 through stage 4 chronic kidney disease, or unspecified chronic kidney disease; N18.2 Chronic kidney disease, stage 2 (mild); B96.1 Klebsiella pneumoniae [K. pneumoniae] as the cause of diseases classified elsewhere; Z82.49 Family history of ischemic heart disease and other diseases of the circulatory system
CPT/HCPCS: 36415; 36416; 71045; 71275; 72100; 72170; 80048; 80053; 81003; 81015; 82550; 82553; 82805; 83036; 83605; 83735; 83880; 84439; 84443; 84481; 84484; 85025; 86850; 86900; 86901; 87040; 87077; 87086; 87186; 87804; 93005; 93306; 93970; 94640; 94760; 96365; 96366; 96375; G0103; J1200; J1650; J1815; J1956; J2270; J2930; J7620; Q9966